=== PATIENT | female | born 1990 | race Caucasian/White ===

== ENCOUNTER 2016-08-20 04:28 | Emergency (ER) | payer OTHER ==
[~2016-08-20] VITALS: Ht 160 cm; Wt 56.0 kg
[2016-08-20 04:35] VITALS: Ht 160 cm; Wt 56.0 kg
[2016-08-20] MEDS ORDERED: ONDANSETRON 4 MG INJ IV STA (05:07)
[2016-08-20] MEDS ORDERED: morphine 4 MG/ML VIAL IV STA (05:07)
[2016-08-20] MEDS ORDERED: SOD CHLORIDE 0.9% 1,000 ML IV STA (05:07)
[2016-08-20 05:29] LABS: ADD SCAN DIFF NO
[2016-08-20] MEDS ORDERED: IOHEXOL 300MG/ML 150 ML BTL ONE (05:29)
[2016-08-20] MEDS ORDERED: SOD CHLORIDE 0.9% 100 ML ONE (05:29)
[2016-08-20 05:42] LABS: BASOPHIL # 0.1 10^3/ul (0.0-0.1); BASOPHILS % 1.1 % (0.0-2.0); EOSINOPHILS # 0.1 10^3/ul (0.0-0.5); EOSINOPHILS % 1.4 % (0.0-7.0); HEMATOCRIT 39.9 % (37.0-47.0); HEMOGLOBIN 13.8 g/dl (12.0-16.0); LYMPHOCYTES % 19.3 % (15.0-51.0); MEAN CORPUSCULAR HEMOGLOBIN 28.1 pg (29.0-33.0); MEAN CORPUSCULAR HGB CONC 34.6 g/dl (32.0-37.0); MEAN CORPUSCULAR VOLUME 81.3 fl (82.0-101.0); MEAN PLATELET VOLUME 10.1 fl (7.4-10.4); MONOCYTE # 0.9 10^3/ul (0.3-0.9); MONOCYTES % 8.4 % (0.0-11.0); NEUTROPHIL # 7.1 10^3/ul (1.6-7.5); NEUTROPHILS % 69.4 % (39.0-77.0); PLATELET COUNT 397 10^3/UL (140-415); RED BLOOD COUNT 4.91 10^6/ul (4.20-5.40); RED CELL DISTRIBUTION WIDTH 13.3 % (11.5-14.5); WHITE BLOOD COUNT 10.2 10^3/ul (4.8-10.8)
[2016-08-20 06:10] LABS: ALBUMIN 5.4 g/dl (3.3-4.9); ALBUMIN/GLOBULIN RATIO 1.54; BILIRUBIN,INDIRECT 0.2 mg/dl (0-1.1); BILIRUBIN,TOTAL 0.2 mg/dl (0.2-1.3); CALCIUM 9.9 mg/dl (8.4-10.2); CREATININE 0.55 mg/dl (0.44-1.00); POTASSIUM 3.7 mmol/L (3.5-5.1); TOTAL PROTEIN 8.9 g/dl (6.1-8.1)
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
[2016-08-20] MEDS ORDERED: HYDROCODONE/APAP (5/325) TAB PO ONE ×2 (08:00→09:00)
[2016-08-20 08:07] VITALS: BP 103/69; PULSE 89; RESP 20
[2016-08-20 08:14] LABS: ADD UMIC NO; UR ASCORBIC ACID NEGATIVE (NEGATIVE); UR BILIRUBIN (Dip) NEGATIVE (NEGATIVE); UR BLOOD (Dip) NEGATIVE (NEGATIVE); UR CLARITY CLEAR (CLEAR); UR COLOR COLORLESS (YELLOW); UR GLUCOSE (Dip) NEGATIVE (NEGATIVE); UR KETONES (Dip) NEGATIVE (NEGATIVE); UR LEUKOCYTE ESTERASE (Dip) NEGATIVE Leu/ul (NEGATIVE); UR NITRITE (Dip) NEGATIVE (NEGATIVE); UR SPECIFIC GRAVITY (Dip) 1.028 (1.003-1.030); UR TOTAL PROTEIN (Dip) NEGATIVE (NEGATIVE); UR UROBILINOGEN (Dip) NEGATIVE (NEGATIVE)
[2016-08-20] MEDS ORDERED: SOD CHLORIDE 0.9% 1,000 ML IV ONE (09:00)
[2016-08-20] MEDS ORDERED: LIDOCAINE 1%/EPI 30 ML INJ INJ STA (09:37)
[2016-08-20] MEDS ORDERED: LIDOCAINE 1% (MDV) 20 ML INJ ONE (09:45)
[2016-08-20] MEDS ORDERED: POLY30OI TOP (09:56)
[2016-08-20] MEDS ORDERED: TRAM50TA2 PO (09:56)
[2016-08-20] MEDS ORDERED: DIPHTH/TET/ACEL PERTUSS (ADULT) 0.5 ML VIAL IM* ONE (10:00)
== END 2016-08-20 10:20 | disposition home or self-care (01) ==
LOC: E/R 04:28
DX: S01.81XA Laceration without foreign body of other part of head, initial encounter (principal); S30.1XXA Contusion of abdominal wall, initial encounter; F10.120 Alcohol abuse with intoxication, uncomplicated; R10.2 Pelvic and perineal pain; V49.40XA Driver injured in collision with unspecified motor vehicles in traffic accident, initial encounter; Z23 Encounter for immunization
CPT/HCPCS: 12013; 36415; 70450; 71260; 72125; 74177; 80053; 80306; 81003; 83690; 84703; 85025; 90471; 90715; 96374; 96375; 99285; J2270; J2405; J7030; Q9967